=== PATIENT | female | born 2000 | race Caucasian/White ===

== ENCOUNTER 2022-07-14 02:33 | Outpatient (CLI) | payer SELFPAY ==
[2022-07-14 17:19] LABS: Anion Gap 11.1 mmol/L (3-11); BUN 14 mg/dL (7-18); CO2 25.9 mmol/L (21.0-32.0); CREATININE 0.6 mg/dL (0.55-1.02); Calcium 9.2 mg/dL (8.5-10.1); Calculated LDL 71 mg/dL (<100); Chloride 105 mmol/L (98-107); Cholesterol 154 mg/dL (<200); Estimated GFR 130.88 (mL/min/1.73m2); Glucose 72 mg/dL (74-106); HDL Cholesterol 67 mg/dL (40-60); Potassium 4.4 mmol/L (3.5-5.1); Sodium 142 mmol/L (136-145); Triglyceride 84 mg/dL (<150)
== END 2022-07-14 02:34 | disposition home or self-care (01) ==
LOC: LBO 02:33
PROVIDERS: PCP Nurse Practitioner Family; Visit Provider Nurse Practitioner Family
DX: Z00.00 Encounter for general adult medical examination without abnormal findings (principal); Z13.220 Encounter for screening for lipoid disorders; Z13.228 Encounter for screening for other metabolic disorders
CPT/HCPCS: 36415; 80048; 80061

== ENCOUNTER 2022-10-06 16:22 | Outpatient (REF) | payer OTHER, SELFPAY ==
--- NOTE | 2022-10-06 14:00 | PAPFT_PTH ---
PATIENT: Danette Whiting LOC: [facility] U#:[id number] AGE/SX: 22/F ROOM: RE10/06/[address]: KADEEM Valdes : 2000 BED: DIS: 10/06/2022 SPEC #: [id number] RECD: 10/07/22 13:06 STATUS: WILLA MOISE #: [id number] SALLIE: 10/06/22 14:[address]: Itzel Solorzano DEPT: [facility] Cytology RECD BY: Renee Oshea Tissues: 1 - CX/ENDOCX FOR PAP SMEARS Procedures: PAP THIN PREP/[facility] Screening Comments: [id number] (CHLAMYDIA/GC)
[2022-10-08 14:39] LABS: Chlamydia Result Negative (Negative); GC Result Negative (Negative)
== END 2022-10-06 16:23 | disposition home or self-care (01) ==
LOC: LBN 16:22
PROVIDERS: PCP Nurse Practitioner Family; Visit Provider Nurse Practitioner Family
DX: Z11.3 Encounter for screening for infections with a predominantly sexual mode of transmission (principal); Z12.4 Encounter for screening for malignant neoplasm of cervix
CPT/HCPCS: 87491; 87591; 88142